=== PATIENT | male | born 1945 | race Caucasian/White ===

== ENCOUNTER 2024-11-10 19:10 | Inpatient (IN) | payer MEDICARE, OTHER ==
[~2024-11-10 19:10] MED LIST: Iopamidol 370 76% 100 ML VIAL ONE
[2024-11-10 19:49] LABS: #Basophils 0.04 10x3/uL (0.0-0.2); #Eosinophils 0.03 10x3/uL (0.0-0.5); #Monocytes 2.17 10x3/uL (0.0-1.1); #Neutrophils 14.01 10x3/uL (1.5-8.4); %Basophils 0.2 % (0.0-2.0); %Eosinophils 0.2 % (0.0-6.0); %Lymphocytes 10.9 % (18.0-47.0); %Monocytes 11.7 % (0.0-10.0); %Neutrophils 75.9 % (40.0-75.0); Hematocrit 36.4 % (38.8-50.0); Hemoglobin 11.6 g/dL (13.5-17.5); Mean Corpuscular Hemoglobin 29.2 pg (27.0-33.0); Mean Corpuscular Volume 91.7 fL (81.2-95.1); Platelet Count 204 10x3/uL (150-450); Red Blood Cell (RBC) Count 3.97 10x6/uL (4.32-5.72); White Blood Cell (WBC) Count 18.47 10x3/uL (3.5-10.5)
[2024-11-10 19:51] LABS: ALT (SGPT) 9 U/L (Less than 45); AST (SGOT) 13 U/L (11-34); Albumin 3.3 g/dL (3.1-4.5); Alkaline Phosphatase 91 U/L (40-110); Anion Gap 14 mmol/L (10-20); BUN (Urea Nitrogen) 30 mg/dL (8.4-25.7); Bilirubin, Total 0.6 mg/dL (0.3-1.2); Calc. Creatinine Clearance 0 mL/min (70-130); Calcium 11.3 mg/dL (7.8-10.44); Carbon Dioxide 23 mmol/L (23-31); Chloride 106 mmol/L (98-107); Globulin 3.7 g/dL (2.4-3.5); Glucose 151 mg/dL (83-110); Potassium 4.5 mmol/L (3.5-5.1); Sodium 138 mmol/L (136-145)
[2024-11-10 19:53] LABS: Troponin I 0.027 ng/mL (< 0.028)
[2024-11-10 21:19] LABS: Glucose, Urine (Dipstick) Normal (Negative); Leukocyte 500 (Negative); Protein, Urine (Dipstick) 100 mg/dl (Neg-Trace); Specific Gravity, Urine 1.005 (1.005-1.030)
[2024-11-10 21:31] LABS: Bacteria/HPF 2+ HPF (None Seen); CAUTI Indications for Culture Alt mental st,lethar; RBC/HPF 0-3 HPF (0-3); WBC/HPF 21-50 HPF (0-3)
[2024-11-10 21:32] LABS: Urine Culture Reflex Yes Yes
[2024-11-10] MEDS ORDERED: Heparin 10,000 UNITS/ 10 ML VIAL ONE (21:39)
[2024-11-10] MEDS ORDERED: Ondansetron PF 4 MG/2 ML Vial IVP PRN (21:48)
[2024-11-10] MEDS ORDERED: Calcium Carbonate 500 MG ChewTAB PO PRN (21:48)
[2024-11-10] MEDS ORDERED: Senokot S 8.6-50 MG TAB PO PRN (21:48)
[2024-11-10 21:51] LABS: INR-International Normal Ratio 1.1; PTT 28.5 sec (22.0-33.0); Prothrombin Time 11.7 sec (9.5-12.1)
[2024-11-10] MEDS ORDERED: cefTRIAXone (ROCEPHIN) 1 GM VIAL ONE (21:54)
[2024-11-10] MEDS ORDERED: Dextrose 50% Abboject 50 ML SYRINGE SLOW IVP PRN (21:59)
[2024-11-10] MEDS ORDERED: Glucagon 1 MG/ML KIT IM PRN (21:59)
[2024-11-10] MEDS ORDERED: Heparin 10,000 UNITS/ 10 ML VIAL SLOW IVP SCH (22:00)
[2024-11-11 01:02] VITALS: BMI 21.3
[2024-11-11 04:19] LABS: #Basophils 0.04 10x3/uL (0.0-0.2); #Eosinophils 0.18 10x3/uL (0.0-0.5); #Monocytes 2.14 10x3/uL (0.0-1.1); #Neutrophils 12.42 10x3/uL (1.5-8.4); %Basophils 0.2 % (0.0-2.0); %Eosinophils 1.1 % (0.0-6.0); %Lymphocytes 11.8 % (18.0-47.0); %Monocytes 12.7 % (0.0-10.0); %Neutrophils 73.5 % (40.0-75.0); Hematocrit 30.7 % (38.8-50.0); Hemoglobin 10.1 g/dL (13.5-17.5); Mean Corpuscular Hemoglobin 29.6 pg (27.0-33.0); Mean Corpuscular Volume 90.0 fL (81.2-95.1); Platelet Count 195 10x3/uL (150-450); Red Blood Cell (RBC) Count 3.41 10x6/uL (4.32-5.72); White Blood Cell (WBC) Count 16.90 10x3/uL (3.5-10.5)
[2024-11-11 04:51] LABS: ALT (SGPT) Less than 7 U/L (Less than 45); AST (SGOT) 10 U/L (11-34); Albumin 2.4 g/dL (3.1-4.5); Alkaline Phosphatase 66 U/L (40-110); Anion Gap 16 mmol/L (10-20); BUN (Urea Nitrogen) 24 mg/dL (8.4-25.7); Bilirubin, Total 0.5 mg/dL (0.3-1.2); Calc. Creatinine Clearance 38 mL/min (70-130); Calcium 9.1 mg/dL (7.8-10.44); Carbon Dioxide 20 mmol/L (23-31); Chloride 96 mmol/L (98-107); Globulin 2.9 g/dL (2.4-3.5); Glucose 647 mg/dL (83-110); Potassium 3.7 mmol/L (3.5-5.1); Sodium 128 mmol/L (136-145)
[2024-11-11 05:27] LABS: D-Dimer Test 6.16 mcg/mL (0.19-0.50); INR-International Normal Ratio 1.4; Prothrombin Time 14.6 sec (9.5-12.1)
[2024-11-11 06:18] LABS: Glucose POC Confirmation 114 mg/dL (83-110)
[2024-11-11] MEDS: Enoxaparin 80 MG (0.8 mL) SYRINGE SC SCH (07:04)
[2024-11-11] MEDS: Carvedilol 25 MG TAB PO SCH (10:08)
[2024-11-11] MEDS: Calcitriol 0.25 MCG CAP PO SCH (10:08)
[2024-11-11] MEDS: Sertraline 100 MG TAB PO SCH (10:08)
[2024-11-11] MEDS: Acetaminophen 325 MG TAB PO PRN (10:09)
[2024-11-11] MEDS: Aspirin Chewable 81 MG TAB PO SCH (10:09)
[2024-11-11 10:35] LABS: Anion Gap 10 mmol/L (10-20); BUN (Urea Nitrogen) 26 mg/dL (8.4-25.7); Calc. Creatinine Clearance 39 mL/min (70-130); Calcium 10.7 mg/dL (7.8-10.44); Carbon Dioxide 23 mmol/L (23-31); Chloride 109 mmol/L (98-107); Glucose 139 mg/dL (83-110); Potassium 4.2 mmol/L (3.5-5.1); Sodium 138 mmol/L (136-145)
[2024-11-11 15:35] LABS: Anion Gap 8 mmol/L (10-20); BUN (Urea Nitrogen) 29 mg/dL (8.4-25.7); Calc. Creatinine Clearance 34 mL/min (70-130); Calcium 10.8 mg/dL (7.8-10.44); Carbon Dioxide 25 mmol/L (23-31); Chloride 109 mmol/L (98-107); Glucose 109 mg/dL (83-110); Potassium 4.4 mmol/L (3.5-5.1); Sodium 138 mmol/L (136-145)
[2024-11-11] MEDS: Apixaban 5 MG TAB PO SCH (16:10)
[2024-11-11] MEDS ORDERED: Enoxaparin 80 MG (0.8 mL) SYRINGE SC SCH (18:00)
[2024-11-11] MEDS: cefTRIAXone\\ROCEPHIN 1 GM in Sodium Chloride 0.9% 100 ML IVPB SCH (21:24)
[2024-11-12 04:09] LABS: #Basophils 0.04 10x3/uL (0.0-0.2); #Eosinophils 0.40 10x3/uL (0.0-0.5); #Monocytes 1.34 10x3/uL (0.0-1.1); #Neutrophils 9.84 10x3/uL (1.5-8.4); %Basophils 0.3 % (0.0-2.0); %Eosinophils 3.0 % (0.0-6.0); %Lymphocytes 12.3 % (18.0-47.0); %Monocytes 10.0 % (0.0-10.0); %Neutrophils 73.6 % (40.0-75.0); Hematocrit 31.3 % (38.8-50.0); Hemoglobin 10.3 g/dL (13.5-17.5); Mean Corpuscular Hemoglobin 29.7 pg (27.0-33.0); Mean Corpuscular Volume 90.2 fL (81.2-95.1); Platelet Count 215 10x3/uL (150-450); Red Blood Cell (RBC) Count 3.47 10x6/uL (4.32-5.72); White Blood Cell (WBC) Count 13.37 10x3/uL (3.5-10.5)
[2024-11-12 04:26] LABS: ALT (SGPT) Less than 7 U/L (Less than 45); AST (SGOT) 12 U/L (11-34); Albumin 2.5 g/dL (3.1-4.5); Alkaline Phosphatase 70 U/L (40-110); Anion Gap 8 mmol/L (10-20); BUN (Urea Nitrogen) 27 mg/dL (8.4-25.7); Bilirubin, Total 0.3 mg/dL (0.3-1.2); Calc. Creatinine Clearance 38 mL/min (70-130); Calcium 10.7 mg/dL (7.8-10.44); Carbon Dioxide 24 mmol/L (23-31); Chloride 111 mmol/L (98-107); Globulin 3.6 g/dL (2.4-3.5); Glucose 98 mg/dL (83-110); Potassium 4.1 mmol/L (3.5-5.1); Sodium 139 mmol/L (136-145)
[2024-11-12] MEDS: Apixaban 5 MG TAB PO SCH (05:22)
[2024-11-12 12:53] VITALS: BP 99/54; TEMP 96.7
[2024-11-16 14:35] LABS: EliA APS New Method **** NEW METHOD ****
== END 2024-11-12 16:31 | disposition home or self-care (01) | DRG 176 ==
LOC: SUATTDRO 19:10 → CSHERS 19:10 → CSHTELE 21:47
PROVIDERS: ADMIT Internal Medicine; ATTEND Internal Medicine
DX: I26.99 Other pulmonary embolism without acute cor pulmonale (principal); N39.0 Urinary tract infection, site not specified; N17.9 Acute kidney failure, unspecified; E78.5 Hyperlipidemia, unspecified; E03.9 Hypothyroidism, unspecified; I25.10 Atherosclerotic heart disease of native coronary artery without angina pectoris; F03.90 Unspecified dementia, unspecified severity, without behavioral disturbance, psychotic disturbance, mood disturbance, and anxiety; E83.52 Hypercalcemia; N40.0 Benign prostatic hyperplasia without lower urinary tract symptoms; E11.22 Type 2 diabetes mellitus with diabetic chronic kidney disease; N18.30 Chronic kidney disease, stage 3 unspecified; I25.2 Old myocardial infarction; Z95.1 Presence of aortocoronary bypass graft; Z87.891 Personal history of nicotine dependence
CPT/HCPCS: 36415; 36416; 70450; 71045; 71275; 80053; 81001; 81240; 81241; 83090; 83605; 84484; 85025; 85300; 85303; 85306; 85307; 85379; 85598; 85610; 85730; 86147; 87040; 87077; 87086; 87186; 93005; 93306; 94760; 94762; 96361; 96365; 96368; 96375; J0696; J1644; J1650; J7030; Q9967